=== PATIENT | male | born 1965 | race Caucasian/White ===

== ENCOUNTER 2018-08-08 20:45 | Inpatient (IN) ==
[2018-08-08] MEDS ORDERED: Mag Hydrox/Al Hydrox/Simeth 30 ML UDC PO PRN (22:01)
[2018-08-08] MEDS: *HR* OxyCODONE Immed Rel 5 MG TABLET PO PRN (22:30)
[2018-08-09] MEDS ORDERED: *HR* OxyCODONE Immed Rel 5 MG TABLET PO SCH
[2018-08-09] MEDS: *HR* OxyCODONE Immed Rel 5 MG TABLET PO PRN ×3 (02:38→11:07)
[2018-08-09 04:52] LABS: Basophils % 0.2 %; Eosinophils # 0.1 K/mcL (0.0-0.6); Eosinophils % 0.7 %; Hematocrit 36.5 % (37.5-50.1); Hemoglobin 12.2 g/dL (12.9-16.9); Immature Granulocytes % 1.4 % (0-4); Lymphocytes # 1.6 K/mcL (0.6-4.6); Lymphocytes % 8.9 %; Mean Corpuscular HGB Conc 33.4 g/dL (31.6-35.5); Mean Corpuscular Hemoglobin 29.3 pg (28.0-33.3); Mean Corpuscular Volume 87.5 fL (83.0-100.0); Mean Platelet Volume 9.2 fL (9.4-12.4); Monocytes # 2.1 K/mcL (0.0-1.3); Monocytes % 11.8 %; Neutrophils # 13.8 K/mcL (1.6-8.9); Platelet Count 423 K/mcL (140-400); Red Blood Count 4.17 M/mcL (4.19-5.50); Red Cell Distribution Width 14.2 % (11.5-14.5)
[2018-08-09 05:10] LABS: BUN/Creatinine Ratio 21 (6-26); Blood Urea Nitrogen 16 mg/dL (6-20); Calcium 9.4 mg/dL (8.6-10.3); Carbon Dioxide 29 mEq/L (23-29); Chloride 97 mEq/L (98-107); Glucose 139 mg/dL (70-105); Osmolality,Calculated 281 (280-300); Potassium 4.3 mEq/L (3.5-5.1); Sodium 134 mEq/L (136-145); eGFR For Non-African Americans > 60 (> 60)
[2018-08-09] MEDS: Acetaminophen 325 MG TABLET PO PRN ×2 (08:31→20:37)
[2018-08-09] MEDS: Aspirin Enteric Coated 81 MG Tablet PO SCH (08:32)
[2018-08-09] MEDS: predniSONE 10 MG TABLET PO SCH (08:33)
[2018-08-09] MEDS: *HR* Enoxaparin 40 MG/0.4 ML SYRINGE SQ SCH (08:34)
--- NOTE | 2018-08-09 10:12 | Internal Med History&Physical ---
Date of Encounter: 08/09/18 Time of Encounter: 10:08 Assessment and Plan (1) Status post total knee replacement, right Current visit: Yes Status: Acute Patient is a right total knee replacement who was admitted to this facility for rehabilitation due to deconditioning and pain management. Patient has a long history of rheumatoid arthritis and states that he has had moderate generalized joint pain since his admission to [facility]. Otherwise patient's surgical recovery from his right total knee replacement has been uneventful. Right knee appears with only slight swelling and midline incision appears healthy and intact. Patient states that his pain has been fairly well-controlled with current medications. Patient states that he is began physical therapy and is progressing well. (2) HTN (hypertension) Current visit: Yes Status: Chronic Vital signs of an stable. We will continue with current medications. Qualifiers: Hypertension type: unspecified Qualified Code(s): I10 - Essential (primary ) hypertension (3) Rheumatoid arthritis Current visit: Yes Status: Chronic Patient states that he has had an increase in generalized arthritic type pain to his joints. Patient states that since his admission to [facility] he has not taken his Leflunomide, which is a immunosuppressive rheumatoid home medication. Patient will be restarted on this medication, although patient has been noted to have a WBC count is greater than 17 presently. Patient's had a slow trending up of his WBC over the past several days. Yesterday's chest x-ray showed no acute process. Patient has been afebrile. Denies any dysuria or productive cough. We will obtain CBC over the next 3 days to monitor WBC count. Qualifiers: Rheumatoid arthritis location: unspecified site Rheumatoid factor presence : unspecified presence Qualified Code(s): M06.9 - Rheumatoid arthritis, unspecified Internal Medicine - H&P: HPI Chief complaint: right total knee replacement Admitted From: Hospital to Hospital Transfer Plans for Post Hospital Care: Home History of present illness: Mr. Barragan is a 52 year old male, who had a right total knee replacement at [facility]. Patient's initial recovery from surgery was uneventful per medical records from Hospital. Patient has a history of hypertension, gout, degenerative joint disease, CAD, and rheumatoid arthritis. Patient currently states that he continues to have moderate pain to his right knee, but that his pain is tolerable with current medications. He does have complaint of increasing moderate pain to various joints, which she describes as rheumatoid arthritis type pain. He states that since his admission at [facility] he has not had his Leflunomide, which is a immunosuppressive medication that he takes for his rheumatoid arthritis. Patient's WBC count was noted to be 17 this morning which has been a slow trending upward over the past several days. Patient had chest x-ray that was done yesterday which showed no acute process. Patient also complains of having no BM since surgery, although he has been passing gas. Patient denies any shortness of breath. States that physical therapy began and has been progressing well. Patient currently has continuous icing to his right knee. Past Med Surg Social Fam HX - Past Medical History Medical history: coronary artery disease, hypertension, RA, other Additional medical history: Gout, carpal tunnel, restless leg syndrome Psychiatric history: no psych history - Past Surgical History Surgical History: knee replacement Additional surgical history: right knee,heart cath-no stents. left knee meniscus transplant - Social History Smoking Status: Never smoker Smokeless Tobacco Status: Yes Alcohol use: none Drug use: none - Family History Mother Living Status: Hx Family Cardiac Disorders: Yes Internal Medicine - H&P: Meds Allopurinol [Zyloprim 300 MG] 450 mg PO DAILY 11/07/17 [History] Irbesartan [Avapro] 300 mg PO DAILY 11/07/17 [History] Potassium Chloride [K-Tab ER] 20 meq PO DAILY 11/07/17 [History] Metoprolol [Lopressor] 50 mg PO BID #60 tablet 11/08/17 [Rx] Triamterene/HCTZ 37.5/25mg [Dyazide] 1 each PO DAILY #30 tablet 11/08/17 [Rx] Acetaminophen [Tylenol] 650 mg PO Q4HR PRN 08/08/18 [History] Aspirin Enteric Coated [Aspirin EC] 81 mg PO DAILY 08/08/18 [History] Enoxaparin [Lovenox] 40 mg SQ DAILY 08/08/18 [History] OxyCODONE Immed Rel [Roxicodone 5 MG] 5 mg PO Q4HR PRN 08/08/18 [History] PredniSONE [Deltasone] 20 mg PO DAILY #12 tablet 08/08/18 [Rx] Docusate [Colace] 100 mg PO BID 08/09/18 [History] Leflunomide [Arava] 20 mg PO DAILY 08/09/18 [History] 3 Allergy/AdvReac Type Severity Reaction Status Date / Time No Known Allergies Allergy Verified 08/05/18 11:41 All Systems PM: A 10-system review of systems was performed and is negative for pertinent findings except as documented above in the HPI. - Constitutional Constitutional: as per HPI, no chills, no fever(s), no night sweats - EENT Eyes: no change in vision, no discharge, no pain, no photophobia Ears: no ear discharge, no ear pain, no tinnitus Nose, mouth and throat: no dysphagia, no nasal discharge, no neck pain, no sore throat - Cardiovascular Cardiovascular ROS IM: as per HPI, no chest pain, no diaphoresis, no dyspnea, no lightheadedness, no palpitations, no syncope - Respiratory Respiratory: as per HPI, no cough, no dyspnea, no wheezing, no excessive phlegm production - Gastrointestinal Gastrointestinal: no abdominal pain, no diarrhea, no hematemesis, no hematochezia, no melena, no nausea, no vomiting - Musculoskeletal Musculoskeletal ROS IM: as per HPI, no numbness, no tingling - Integumentary Integumentary IM: no rash, no unusual bruising - Neurological Neurological ROS: no confusion, no convulsions, no focal weakness, no numbness, no tingling, no tremor(s) - Hematologic/Lymphatic Hematologic/Lymphatic: no easy bruising - Constitutional Vitals: Temp Pulse Resp BP Pulse Ox 97.4 F L 76 18 136/77 96 08/09/18 07:10 08/09/18 07:10 08/09/18 07:10 08/09/18 07:10 08/09/18 07:10 General appearance: Present: A&O X 3, pleasant - Head Head exam: Present: atraumatic, normocephalic - Eye Eye exam: Present: PERRL, conjuntiva pink, sclera anicteric Pupils: Present: PERRL - Neck Neck exam general surgery: Present: supple, trachea midline. Absent: lymphadenopathy - Respiratory Respiratory exam: Present: CTAB. Absent: accessory muscle use, rales, rhonchi, wheezes - Cardiovascular Cardiovascular exam: Present: RRR, +S1, +S2. Absent: diastolic murmur, gallop, rubs, systolic murmur - GI/Abdominal GI/Abdominal exam: Present: normal bowel sounds, soft, no peritoneal signs. Absent: distended, tenderness - Extremities Exam Extremities exam: Present: warm, radial pulses palpable and symmetrical. Absent : calf tenderness, cyanotic, pedal edema Additional comments: Right knee appears slightly swollen with a midline surgical incision appears healthy and intact. No erythema or ecchymosis noted at site. Continuous icing and use - Neurological Exam Neurological exam: Present: CN II-XII intact, oriented X3, no focal deficits. Absent: pronater drift, facial droop, speech deficit - Skin Skin exam: Present: dry, intact Internal Med - H&P Results - Labs CBC & Chem 7: 08/09/18 04:15 08/09/18 04:15 Labs: Short CBC 08/09/18 Range/Units 04:15 WBC 17.9 H (4.3-11.1) K/mcL Hgb 12.2 L (12.9-16.9) g/dL Hct 36.5 L (37.5-50.1) % Plt Count 423 H (140-400) K/mcL Neutrophils # 13.8 H (1.6-8.9) K/mcL BMP 08/09/18 04:15 Sodium 134 L Potassium 4.3 Chloride 97 L Carbon Dioxide 29 BUN 16 Creatinine 0.75 Glucose 139 H Calcium 9.4
[2018-08-09] MEDS: LEFLUNOMIDE 20 MG PO SCH (10:17)
[2018-08-09] MEDS ORDERED: MOM Conc 10 ML UD.LIQ PO PRN (15:04)
[2018-08-09 17:35] LABS: Bilirubin,Urine Negative (Negative); Blood,Urine Negative (Negative); Clarity,Urine Clear (Clear); Color,Urine Yellow (Yellow); Glucose,Urine (UA) Normal (Normal); Ketones,Urine Negative (Negative); Leukocyte Esterase,Urine Negative (Negative); Nitrite,Urine Negative (Negative); Protein,Urine Negative (Neg-Trace); Specific Gravity,Urine 1.015 (1.010-1.025); Urobilinogen,Urine Normal (Normal)
[2018-08-09] MEDS: Sennosides 8.6 MG TABLET PO SCH (20:37)
[2018-08-09] MEDS: tiZANidine 4 MG TABLET PO PRN (20:38)
[2018-08-10 06:27] LABS: Basophils # 0.1 K/mcL (0.0-0.2); Basophils % 0.5 %; Eosinophils # 0.6 K/mcL (0.0-0.6); Eosinophils % 3.9 %; Hemoglobin 10.6 g/dL (12.9-16.9); Immature Granulocytes % 2.5 % (0-4); Lymphocytes # 2.5 K/mcL (0.6-4.6); Lymphocytes % 17.9 %; Mean Corpuscular HGB Conc 33.1 g/dL (31.6-35.5); Mean Corpuscular Hemoglobin 28.9 pg (28.0-33.3); Mean Corpuscular Volume 87.2 fL (83.0-100.0); Mean Platelet Volume 8.8 fL (9.4-12.4); Monocytes # 1.9 K/mcL (0.0-1.3); Monocytes % 13.3 %; Neutrophils # 8.8 K/mcL (1.6-8.9); Platelet Count 383 K/mcL (140-400); Red Blood Count 3.67 M/mcL (4.19-5.50); Red Cell Distribution Width 14.3 % (11.5-14.5); Segmented Neutrophils % 61.9 %
[2018-08-10 06:44] LABS: Alanine Aminotransferase 20 Units/L (7-52); Albumin 3.4 g/dL (3.5-5.7); Albumin/Globulin Ratio 1.4 (1.1-2.2); Alkaline Phosphatase 57 Units/L (34-104); Aspartate Amino Transferase 16 Units/L (13-39); BUN/Creatinine Ratio 27 (6-26); Bilirubin,Total 0.6 mg/dL (0.3-1.0); Blood Urea Nitrogen 21 mg/dL (6-20); Calcium 8.9 mg/dL (8.6-10.3); Carbon Dioxide 29 mEq/L (23-29); Chloride 100 mEq/L (98-107); Globulin 2.5 g/dL (2.4-3.5); Glucose 100 mg/dL (70-105); Magnesium 2.4 mg/dL (1.6-2.6); Osmolality,Calculated 283 (280-300); Potassium 3.3 mEq/L (3.5-5.1); Sodium 135 mEq/L (136-145); Total Protein 5.9 g/dL (6.4-8.9); eGFR For Non-African Americans > 60 (> 60)
[2018-08-10] MEDS: LEFLUNOMIDE 20 MG PO SCH (08:57)
[2018-08-10] MEDS: predniSONE 10 MG TABLET PO SCH (08:57)
[2018-08-10] MEDS: *HR* Enoxaparin 40 MG/0.4 ML SYRINGE SQ SCH (08:58)
[2018-08-10] MEDS: Aspirin Enteric Coated 81 MG Tablet PO SCH (08:58)
[2018-08-10] MEDS: Sennosides 8.6 MG TABLET PO SCH ×2 (08:58→21:50)
[2018-08-10] MEDS: tiZANidine 4 MG TABLET PO PRN ×3 (09:08→21:51)
[2018-08-10] MEDS: *HR* OxyCODONE Immed Rel 5 MG TABLET PO PRN ×3 (10:36→21:51)
[2018-08-10] MEDS: Acetaminophen 325 MG TABLET PO PRN (13:45)
--- NOTE | 2018-08-10 14:01 | Internal Med Progress Note ---
Date of Encounter: 08/10/18 Time of Encounter: 12:30 - Assessment and plan (1) Status post total knee replacement, right Current Visit: Yes Status: Acute Assessment and plan: This is stable and we will continue therapies as planned. Muscle relaxant seems to help his spasm at the quadriceps muscle. Constipation has improved and hopefully will be resolved. (2) HTN (hypertension) Current Visit: Yes Status: Chronic Assessment and plan: This is clinically controlled on his current regimen. Qualifiers: Hypertension type: unspecified Qualified Code(s): I10 - Essential (primary ) hypertension (3) DVT prophylaxis Current Visit: No Status: Acute Assessment and plan: We will continue enoxaparin until we know he is ambulating well enough to decrease his risk. (4) Gout Current Visit: No Status: Chronic Assessment and plan: No current symptoms or findings. Qualifiers: Gout site: unspecified site Gout etiology: unspecified cause Chronicity: unspecified Qualified Code(s): M10.9 - Gout, unspecified (5) Rheumatoid arthritis Current Visit: Yes Status: Chronic Assessment and plan: This seems to be stable on current regimen. Qualifiers: Rheumatoid arthritis location: unspecified site Rheumatoid factor presence : unspecified presence Qualified Code(s): M06.9 - Rheumatoid arthritis, unspecified (6) Postoperative urinary retention Current Visit: No Status: Chronic Assessment and plan: Currently asymptomatic. - Subjective Interval history: Patient finally moved his bowels and feels like he will have a bowel movement shortly. He has moderate pain which seems to be controlled, especially in the upper thigh and the muscle relaxant helped us. Patient has no complaint of chest discomfort, dyspnea, orthopnea, palpitations, nausea or vomiting, constipation or diarrhea, other changes in bowel habits, difficulty with urination, rash or itching, or other new complaints, except as mentioned above. Review of systems is otherwise negative. I discussed management of her care with nursing staff. - Constitutional Vitals: Temp Pulse Resp BP Pulse Ox 98.6 F 70 16 129/77 99 08/10/18 06:56 08/10/18 06:56 08/10/18 06:56 08/10/18 06:56 08/10/18 06:56 Exam: Examination: (Except as mentioned above): General: In no apparent distress. Alert and oriented 3. Nondiaphoretic. Head: Atraumatic and normocephalic. Respiratory: No use of accessory muscles. Lungs are clear throughout. Normal airflow. Cardiovascular: Regular rate and rhythm without murmur appreciated. Abdomen: Bowel sounds are normal. No hepatosplenomegaly mass or tenderness appreciated. Obese and therefore difficult to palpate deeply. Extremities: No cyanosis clubbing or edema. He actually has minimal edema at the right upper thigh and palpable spasm but this is better than yesterday. Skin: Warm and non-diaphoretic with no new lesions noted. Internal Medicine: Result - Labs CBC & Chem 7: 08/10/18 05:40 08/10/18 05:40 Labs: Short CBC 08/10/18 Range/Units 05:40 WBC 14.2 H (4.3-11.1) K/mcL Hgb 10.6 L D (12.9-16.9) g/dL Hct 32.0 L (37.5-50.1) % Plt Count 383 (140-400) K/mcL Neutrophils # 8.8 (1.6-8.9) K/mcL BMP 08/10/18 05:40 Sodium 135 L Potassium 3.3 L Chloride 100 Carbon Dioxide 29 BUN 21 H Creatinine 0.78 Glucose 100 Calcium 8.9 Liver Function 08/10/18 Range/Units 05:40 Total Bilirubin 0.6 (0.3-1.0) mg/dL AST 16 (13-39) Units/L ALT 20 (7-52) Units/L Alkaline Phosphatase 57 (34-104) Units/L Albumin 3.4 L (3.5-5.7) g/dL Urine 08/09/18 Range/Units 17:22 Urine Color Yellow (Yellow) Urine Clarity Clear (Clear) Urine pH 7.0 (5.0-8.0) pH Units Ur Specific West 1.015 (1.010-1.025) Urine Protein Negative (Neg-Trace) mg/dL Urine Glucose (UA) Normal (Normal) mg/dL Consult Discharge Plan - Plan Referrals: Celestine Martinez MD [Partnered Physician] - 09/04/18 4:45 pm Danika Guerrier PAC [Physician Business Analytics Manager] - 08/23/18 8:45 am ([facility] [place] f/u appt on 08/15/18 at 09:30am f/u appt on Sunday08/23/18 at 08:45am) Miguel Lira DO [Partnered Physician] - 10/15/18 4:00 pm Black Garrison DO [Primary Care Provider] - 11/25/18 11:00 am
[2018-08-11] MEDS: *HR* OxyCODONE Immed Rel 5 MG TABLET PO PRN ×2 (05:32→20:37)
[2018-08-11] MEDS: tiZANidine 4 MG TABLET PO PRN ×3 (05:36→17:29)
[2018-08-11 05:43] LABS: Basophils # 0.1 K/mcL (0.0-0.2); Basophils % 0.6 %; Eosinophils # 0.7 K/mcL (0.0-0.6); Eosinophils % 3.5 %; Hematocrit 32.4 % (37.5-50.1); Hemoglobin 10.8 g/dL (12.9-16.9); Immature Granulocytes % 3.1 % (0-4); Lymphocytes % 21.3 %; Mean Corpuscular HGB Conc 33.3 g/dL (31.6-35.5); Mean Corpuscular Hemoglobin 29.3 pg (28.0-33.3); Mean Platelet Volume 8.7 fL (9.4-12.4); Monocytes # 2.3 K/mcL (0.0-1.3); Monocytes % 12.2 %; Platelet Count 426 K/mcL (140-400); Red Blood Count 3.68 M/mcL (4.19-5.50); Red Cell Distribution Width 14.6 % (11.5-14.5); Segmented Neutrophils % 59.3 %
[2018-08-11] MEDS: Acetaminophen 325 MG TABLET PO PRN ×2 (09:50→17:28)
[2018-08-11] MEDS: predniSONE 10 MG TABLET PO SCH (09:50)
[2018-08-11] MEDS: Sennosides 8.6 MG TABLET PO SCH ×2 (09:51→20:36)
[2018-08-11] MEDS: *HR* Enoxaparin 40 MG/0.4 ML SYRINGE SQ SCH (09:51)
[2018-08-11] MEDS: Aspirin Enteric Coated 81 MG Tablet PO SCH (09:51)
[2018-08-11] MEDS: LEFLUNOMIDE 20 MG PO SCH (09:52)
--- NOTE | 2018-08-11 12:38 | Internal Med Progress Note ---
Date of Encounter: 08/11/18 Time of Encounter: 12:36 - Assessment and plan (1) Status post total knee replacement, right Current Visit: Yes Status: Acute Assessment and plan: Right knee with minimal edema noted and midline surgical incision appears dry and intact. No erythema noted, but slight ecchymosis noted to right lateral. We will continue with current CPM machine while in bed. Patient to continue with continuous icing. Patient states pain is tolerable with current pain medications. Patient does complain of slight decrease in sensation to his right lower leg since his surgery. On exam patient has very slight decreased sensation to sharp stimulus. Patient also noted to have a Bryant's cyst to the posterior knee which is tender on palpation. Patient also has a complaint of paresthesia started last evening to his right ankle area. He states that he does have a history of gout, so we will obtain a uric acid on his next blood draw. No other signs of infectious process noted. (2) HTN (hypertension) Current Visit: Yes Status: Chronic Assessment and plan: No acute issues. Patient is vital signs been stable. We will continue with current medications. Qualifiers: Hypertension type: unspecified Qualified Code(s): I10 - Essential (primary ) hypertension (3) Rheumatoid arthritis Current Visit: Yes Status: Chronic Assessment and plan: No acute issues. Patient had a complaint of generalized joint pain several days earlier, which has resolved after starting back on his home rheumatoid medications Qualifiers: Rheumatoid arthritis location: unspecified site Rheumatoid factor presence : unspecified presence Qualified Code(s): M06.9 - Rheumatoid arthritis, unspecified - Time Spent With Patient less than 15 minutes - Subjective Interval history: Patient complaints of a paresthesia-type effect to his right foot, stating that he has had decreased sensation from his knee down since surgery, but now has a tingling type sensation to his right ankle area. Patient also complains of pain to the back of his knee where he has a Bryant cyst which is tender on palpation. Cardiovascular checks of right distal legs were normal with capillary refill less than 3 seconds. Patient states that pain to his right knee has been tolerable with current pain medications. Patient currently has CPM continues with continuous ice machine. Patient denies any fever or chills. Denies any productive cough or dysuria. Today's WBC count was 18. Patient states a history of gout - Constitutional Vitals: Temp Pulse Resp BP Pulse Ox 98.4 F 73 16 146/80 97 08/11/18 07:40 08/11/18 07:40 08/11/18 07:40 08/11/18 07:40 08/11/18 07:40 General appearance: Present: A&O X 3, pleasant - Head Head exam: Present: atraumatic, normocephalic - Eye Eye exam: Present: PERRL, conjuntiva pink, sclera anicteric Pupils: Present: PERRL - Neck Neck exam general surgery: Present: supple, trachea midline. Absent: lymphadenopathy - Respiratory Respiratory exam: Present: CTAB. Absent: accessory muscle use, rales, rhonchi, wheezes - Cardiovascular Cardiovascular exam: Present: RRR, +S1, +S2. Absent: diastolic murmur, gallop, rubs, systolic murmur - GI/Abdominal GI/Abdominal exam: Present: normal bowel sounds, soft, no peritoneal signs. Absent: distended, tenderness - Extremities Exam Extremities exam: Present: warm, radial pulses palpable and symmetrical. Absent : calf tenderness, cyanotic, pedal edema Additional comments: Right knee midline surgical incision appears dry and intact with no erythema. Noted slight ecchymosis to the lateral side. Normal edema. CPM and continuous use at this time. Continuous icing and use - Neurological Exam Neurological exam: Present: CN II-XII intact, oriented X3. Absent: pronater drift, facial droop, speech deficit Additional comments: Patient complains of decreased sensation below his right knee surgical site distally. On exam patient noted to have slightly decreased sharp sensation bilaterally on right leg. Patient also complains of paresthesia to the right ankle. No other focal neurological deficits noted on exam. - Skin Skin exam: Present: dry, intact Internal Medicine: Result - Labs CBC & Chem 7: 08/11/18 05:35 08/10/18 05:40 Labs: Short CBC 08/11/18 Range/Units 05:35 WBC 18.6 H (4.3-11.1) K/mcL Hgb 10.8 L (12.9-16.9) g/dL Hct 32.4 L (37.5-50.1) % Plt Count 426 H (140-400) K/mcL Neutrophils # 11.0 H (1.6-8.9) K/mcL Consult Discharge Plan - Plan Referrals: Celestine Martinez MD [Partnered Physician] - 09/04/18 4:45 pm Danika Guerrier PAC [Physician Dye Maker] - 08/23/18 8:45 am ([facility] [place] f/u appt on 08/15/18 at 09:30am f/u appt on Sunday08/23/18 at 08:45am) Miguel Lira DO [Partnered Physician] - 10/15/18 4:00 pm Black Garrison DO [Primary Care Provider] - 11/25/18 11:00 am
[2018-08-12] MEDS: Acetaminophen 325 MG TABLET PO PRN ×2 (03:31→14:47)
[2018-08-12] MEDS: tiZANidine 4 MG TABLET PO PRN (03:32)
[2018-08-12 05:51] LABS: Basophils # 0.1 K/mcL (0.0-0.2); Basophils % 0.6 %; Eosinophils # 0.5 K/mcL (0.0-0.6); Eosinophils % 3.6 %; Hematocrit 30.6 % (37.5-50.1); Hemoglobin 9.9 g/dL (12.9-16.9); Immature Granulocytes % 3.3 % (0-4); Lymphocytes # 2.7 K/mcL (0.6-4.6); Lymphocytes % 19.7 %; Mean Corpuscular HGB Conc 32.4 g/dL (31.6-35.5); Mean Corpuscular Hemoglobin 29.2 pg (28.0-33.3); Mean Corpuscular Volume 90.3 fL (83.0-100.0); Mean Platelet Volume 8.8 fL (9.4-12.4); Monocytes # 1.7 K/mcL (0.0-1.3); Monocytes % 12.2 %; Neutrophils # 8.4 K/mcL (1.6-8.9); Platelet Count 327 K/mcL (140-400); Red Blood Count 3.39 M/mcL (4.19-5.50); Red Cell Distribution Width 14.6 % (11.5-14.5); Segmented Neutrophils % 60.6 %
[2018-08-12 06:09] LABS: BUN/Creatinine Ratio 20 (6-26); Blood Urea Nitrogen 14 mg/dL (6-20); Calcium 8.9 mg/dL (8.6-10.3); Carbon Dioxide 30 mEq/L (23-29); Chloride 104 mEq/L (98-107); Glucose 97 mg/dL (70-105); Magnesium 2.4 mg/dL (1.6-2.6); Osmolality,Calculated 290 (280-300); Potassium 4.3 mEq/L (3.5-5.1); Sodium 140 mEq/L (136-145); eGFR For Non-African Americans > 60 (> 60)
[2018-08-12] MEDS: *HR* OxyCODONE Immed Rel 5 MG TABLET PO PRN ×2 (07:41→11:58)
[2018-08-12] MEDS: predniSONE 10 MG TABLET PO SCH (07:42)
[2018-08-12] MEDS: Aspirin Enteric Coated 81 MG Tablet PO SCH (07:43)
[2018-08-12] MEDS: Sennosides 8.6 MG TABLET PO SCH ×2 (07:43→20:33)
[2018-08-12] MEDS: *HR* Enoxaparin 40 MG/0.4 ML SYRINGE SQ SCH (07:45)
[2018-08-12] MEDS: LEFLUNOMIDE 20 MG PO SCH (07:55)
--- NOTE | 2018-08-12 10:58 | Internal Med Progress Note ---
Date of Encounter: 08/12/18 Time of Encounter: 10:56 - Assessment and plan (1) Status post total knee replacement, right Current Visit: Yes Status: Acute Assessment and plan: Right knee with minimal edema noted and midline surgical incision appears dry and intact. No erythema noted, but slight ecchymosis noted to right lateral. We will continue with current CPM machine while in bed. Patient to continue with continuous icing. Patient states pain remains tolerable with current pain medications. Patient does continue to complain of slight decrease in sensation to his right lower leg since his surgery, but states that the decreased sensation and a paresthesia symptoms have subsided somewhat. Patient also noted to have a Bryant's cyst to the posterior knee which is tender on palpation. He states that he does have a history of gout, but uric acid this morning it was only 2.8. No other signs of infectious process noted. (2) HTN (hypertension) Current Visit: Yes Status: Chronic Assessment and plan: No acute issues. Patient is vital signs been stable. We will continue with current medications. Qualifiers: Hypertension type: unspecified Qualified Code(s): I10 - Essential (primary ) hypertension (3) Rheumatoid arthritis Current Visit: Yes Status: Chronic Assessment and plan: No acute issues. Patient had a complaint of generalized joint pain several days earlier, which has resolved after starting back on his home rheumatoid medications. Patient's most recent WBC count was 13 Qualifiers: Rheumatoid arthritis location: unspecified site Rheumatoid factor presence : unspecified presence Qualified Code(s): M06.9 - Rheumatoid arthritis, unspecified - Time Spent With Patient less than 15 minutes - Subjective Interval history: He states that the decreased sensation and paresthesia type symptoms he is having to his right lower leg and ankle have decreased today. Patient still complains of moderate pain to the back of his right knee due to the Bryant cyst that has been present. Patient states that his pain continues to be tolerable with current medications. Denies any other discomforts or shortness of breath. Denies any further constipation, stating that he is having greater BM's at this point. Patient has upcoming orthopedic appointment later this week and has been recommended to present his symptoms of decreased sensation and paresthesias to the orthopedic surgeon. Patient had stated that the symptoms and mainly postop. Right leg remains nonacute on exam with excellent CV checks. History of gout with this morning's uric acid at 2.8. - Constitutional Vitals: Temp Pulse Resp BP Pulse Ox 98.3 F 70 18 155/89 98 08/12/18 07:03 08/12/18 07:03 08/12/18 07:03 08/12/18 07:03 08/12/18 07:03 General appearance: Present: A&O X 3, pleasant - Head Head exam: Present: atraumatic, normocephalic - Eye Eye exam: Present: PERRL, conjuntiva pink, sclera anicteric Pupils: Present: PERRL - Neck Neck exam general surgery: Present: supple, trachea midline. Absent: lymphadenopathy - Respiratory Respiratory exam: Present: CTAB. Absent: accessory muscle use, rales, rhonchi, wheezes - Cardiovascular Cardiovascular exam: Present: RRR, +S1, +S2. Absent: diastolic murmur, gallop, rubs, systolic murmur - GI/Abdominal GI/Abdominal exam: Present: normal bowel sounds, soft, no peritoneal signs. Absent: distended, tenderness - Extremities Exam Extremities exam: Present: warm, radial pulses palpable and symmetrical. Absent : calf tenderness, cyanotic, pedal edema Additional comments: Right knee surgical incision remains dry and intact. No edema noted. No erythema. Minimal ecchymosis noted. - Neurological Exam Neurological exam: Present: CN II-XII intact, oriented X3, no focal deficits. Absent: pronater drift, facial droop, speech deficit - Skin Skin exam: Present: dry, intact Internal Medicine: Result - Labs CBC & Chem 7: 08/12/18 05:20 08/12/18 05:20 Labs: Short CBC 08/12/18 Range/Units 05:20 WBC 13.8 H (4.3-11.1) K/mcL Hgb 9.9 L (12.9-16.9) g/dL Hct 30.6 L (37.5-50.1) % Plt Count 327 (140-400) K/mcL Neutrophils # 8.4 (1.6-8.9) K/mcL BMP 08/12/18 05:20 Sodium 140 Potassium 4.3 Chloride 104 Carbon Dioxide 30 H BUN 14 Creatinine 0.69 L Glucose 97 Calcium 8.9 Consult Discharge Plan - Plan Referrals: Celestine Martinez MD [Partnered Physician] - 09/04/18 4:45 pm Danika Guerrier, RHONDA [Physician Print Developer] - 08/23/18 8:45 am ([facility] [place] f/u appt on 08/15/18 at 09:30am f/u appt on Sunday08/23/18 at 08:45am) Miguel Lira DO [Partnered Physician] - 10/15/18 4:00 pm Black Garrison DO [Primary Care Provider] - 11/25/18 11:00 am
[2018-08-13] MEDS: tiZANidine 4 MG TABLET PO PRN ×2 (00:12→08:50)
[2018-08-13] MEDS: *HR* OxyCODONE Immed Rel 5 MG TABLET PO PRN ×2 (00:14→05:40)
[2018-08-13 07:16] VITALS: BP 176/96
[2018-08-13] MEDS: *HR* Enoxaparin 40 MG/0.4 ML SYRINGE SQ SCH (08:47)
[2018-08-13] MEDS: Acetaminophen 325 MG TABLET PO PRN (08:49)
[2018-08-13] MEDS: predniSONE 10 MG TABLET PO SCH (08:49)
[2018-08-13] MEDS: Aspirin Enteric Coated 81 MG Tablet PO SCH (08:50)
[2018-08-13] MEDS: Sennosides 8.6 MG TABLET PO SCH (08:50)
[2018-08-13] MEDS: LEFLUNOMIDE 20 MG PO SCH (08:51)
--- NOTE | 2018-08-13 11:35 | Discharge Summary ---
Date of Encounter: 08/13/18 Time of Encounter: 11:33 - Discharge Diagnosis (1) Status post total knee replacement, right Priority: Primary Status: Acute Comments: Improving. Continue outpatient physical therapy. Follow up with ortho as scheduled. Has appointment with Dr. Martinez on August 15. (2) HTN (hypertension) Priority: Primary Status: Chronic Comments: Controlled with current medication. Monitor blood pressure. Qualifiers: Hypertension type: unspecified Qualified Code(s): I10 - Essential (primary ) hypertension (3) Rheumatoid arthritis Priority: Primary Status: Chronic Comments: Controlled with current medication. Qualifiers: Rheumatoid arthritis location: unspecified site Rheumatoid factor presence : unspecified presence Qualified Code(s): M06.9 - Rheumatoid arthritis, unspecified Hospital course: Mr. Barragan is a 52 year old male Discharge discussed with: patient, nurse, social work - Time Spent with Patient Total time spent providing and/or coordinating discharge services: Less than 30 minutes - Discharge Medications Home Medications: Allopurinol [Zyloprim 300 MG] 450 mg PO DAILY 11/07/17 [History] Irbesartan [Avapro] 300 mg PO DAILY 11/07/17 [History] Metoprolol [Lopressor] 50 mg PO BID #60 tablet 11/08/17 [Rx] Triamterene/HCTZ 37.5/25mg [Dyazide] 1 each PO DAILY #30 tablet 11/08/17 [Rx] Acetaminophen [Tylenol] 650 mg PO Q4HR PRN 08/08/18 [History] Aspirin Enteric Coated [Aspirin EC] 81 mg PO DAILY 08/08/18 [History] OxyCODONE Immed Rel [Roxicodone 5 MG] 5 mg PO Q4HR PRN 08/08/18 [History] Docusate [Colace] 100 mg PO BID 08/09/18 [History] Leflunomide [Arava] 20 mg PO DAILY 08/09/18 [History] Docusate [Colace] 100 mg PO BID capsule 08/13/18 [Rx] MOM Conc [MILK OF MAGNESIA conc] 10 ml PO DAILY PRN ud.liq 08/13/18 [Rx] Mag Hydrox/Al Hydrox/Simeth [Maalox] 30 ml PO Q4H PRN udc 08/13/18 [Rx] Patient Taking Own Medication 0 each PO DAILY each 08/13/18 [Rx] Polyethylene Glycol 3350 [MiraLAX] 17 gm PO DAILY PRN powd.pack 08/13/18 [Rx] Potassium Chloride 20 meq PO TID tab.er.prt 08/13/18 [Rx] predniSONE [PredniSONE] 15 mg PO DAILY tablet 08/13/18 [Rx] Allergies/Adverse Reactions: 3 Allergy/AdvReac Type Severity Reaction Status Date / Time No Known Allergies Allergy Verified 08/05/18 11:41 Date of admission: 08/08/18 20:45 Primary care physician: Black Garrison DO Consults: 08/08/18 22:22 Consult to Occupational Therapy [CONS] Routine Comment: Evaluate, develop and implement POC Reason for Consult: eval / tx Does patient have active BEDREST order?: No Is patient medically & hemodynamically stable?: Yes Patient assessed for mobility or mobilized this visit?: No Consult to Physical Therapy [CONS] Routine Comment: Evaluate, develop and implement POC Reason for Consult: eval / tx Does patient have active BEDREST order?: No Is patient medically & hemodynamically stable?: Yes Patient assessed for mobility or mobilized this visit?: No Consult to Recreational Therapy [CONS] Routine Comment: Evaluate, develop and implement POC Consult to Aoc Director Intelligence Officer [CONS] Routine Reason for SW Consult: d/c planning 08/09/18 15:00 Consult to Physical Medicine/Rehab [CONS] Routine Reason for Consult: TKR Time Notified: 15:00 Call Completed: No Discharging clinician: Juan Escobar Anticipated date of discharge: 08/13/18 - Constitutional Vitals: Temp Pulse Resp BP Pulse Ox 98.2 F 71 18 176/96 98 08/13/18 07:16 08/13/18 07:16 08/13/18 07:16 08/13/18 07:16 08/13/18 07:16 General appearance: Present: cooperative, A&O X 3, pleasant, no acute distress, answers questions appropriately - Head Head exam: Present: atraumatic, normocephalic - Eye Eye exam: Present: PERRL, conjuntiva pink, sclera anicteric Pupils: Present: PERRL - Neck Neck exam general surgery: Present: supple, trachea midline. Absent: lymphadenopathy - Respiratory Respiratory exam: Present: CTAB. Absent: accessory muscle use, rales, rhonchi, wheezes - Cardiovascular Cardiovascular exam: Present: RRR, +S1, +S2. Absent: diastolic murmur, gallop, rubs, systolic murmur - GI/Abdominal GI/Abdominal exam: Present: normal bowel sounds, soft, no peritoneal signs. Absent: distended, tenderness - Extremities Exam Extremities exam: Present: warm, radial pulses palpable and symmetrical. Absent : calf tenderness, cyanotic, pedal edema - Incison Comments: right knee incision drsg dry and intact. - Neurological Exam Neurological exam: Present: CN II-XII intact, oriented X3, no focal deficits. Absent: pronater drift, facial droop, speech deficit - Skin Skin exam: Present: dry, intact - Patient Status Disposition: Home, Self-Care Condition: Good Functional capacity at discharge: uses cane/walker Overall status at discharge: patient is progressing back to baseline - Discharge Instructions Follow Up With: Celestine Martinez MD [Partnered Physician] - 09/04/18 4:45 pm Danika Guerrier PAC [Physician Feather Stitcher] - 08/23/18 8:45 am ([facility] f/u appt on 08/15/18 at 09:30am f/u appt on Sunday08/23/18 at 08:45am) Miguel Lira DO [Partnered Physician] - 10/15/18 4:00 pm Black Garrison DO [Primary Care Provider] - 08/22/18 12:00 pm
--- NOTE | 2018-08-13 15:47 | Physician Discharge Referral ---
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 For more information, call the [place] Tobacco Quit Line at 9-663-MLOQ-NOW. - Diet/Nutrition Diet/Nutrition Orders: Regular - Activity Activity Orders: Walker - Services Needed Following services are medically necessary services: Nursing, Physical Therapy, Occupational Therapy - Transfer Medications Home Medications: Allopurinol [Zyloprim 300 MG] 450 mg PO DAILY 11/07/17 [History] Irbesartan [Avapro] 300 mg PO DAILY 11/07/17 [History] Metoprolol [Lopressor] 50 mg PO BID #60 tablet 11/08/17 [Rx] Triamterene/HCTZ 37.5/25mg [Dyazide] 1 each PO DAILY #30 tablet 11/08/17 [Rx] Acetaminophen [Tylenol] 650 mg PO Q4HR PRN 08/08/18 [History] Aspirin Enteric Coated [Aspirin EC] 81 mg PO DAILY 08/08/18 [History] OxyCODONE Immed Rel [Roxicodone 5 MG] 5 mg PO Q4HR PRN 08/08/18 [History] Docusate [Colace] 100 mg PO BID 08/09/18 [History] Leflunomide [Arava] 20 mg PO DAILY 08/09/18 [History] Docusate [Colace] 100 mg PO BID capsule 08/13/18 [Rx] MOM Conc [MILK OF MAGNESIA conc] 10 ml PO DAILY PRN ud.liq 08/13/18 [Rx] Mag Hydrox/Al Hydrox/Simeth [Maalox] 30 ml PO Q4H PRN udc 08/13/18 [Rx] Patient Taking Own Medication 0 each PO DAILY each 08/13/18 [Rx] Polyethylene Glycol 3350 [MiraLAX] 17 gm PO DAILY PRN powd.pack 08/13/18 [Rx] Potassium Chloride 20 meq PO TID tab.er.prt 08/13/18 [Rx] predniSONE [PredniSONE] 15 mg PO DAILY tablet 08/13/18 [Rx] Allergies/Adverse Reactions: 3 Allergy/AdvReac Type Severity Reaction Status Date / Time No Known Allergies Allergy Verified 08/05/18 11:41 Certification: Further, I certify that my clinical findings support that this patient is homebound (i.e. absences from home require considerable and taxing effort and are for medical reasons or [facility] or infrequently or short duration when for other reasons) because: Homebound Reason: Patient requires assistance of a person or device to safely leave home, Post-surgery restriction and or conditions limit ability to leave home Attestation: My signature below is to certify that this patient is under my care and that I, or nurse practitioner, or a physician's insurance claims assistant working with me, has a face-to -face encounter with this patient.
--- NOTE | 2018-08-13 15:53 | Internal Med History&Physical ---
Date of Encounter: 08/13/18 Time of Encounter: 15:52 Assessment and Plan (1) Status post total knee replacement, right Status: Acute (2) HTN (hypertension) Status: Chronic Qualifiers: Hypertension type: unspecified Qualified Code(s): I10 - Essential (primary ) hypertension (3) DVT prophylaxis Status: Acute (4) Gout Status: Chronic Qualifiers: Gout site: unspecified site Gout etiology: unspecified cause Chronicity: unspecified Qualified Code(s): M10.9 - Gout, unspecified (5) Rheumatoid arthritis Status: Chronic Qualifiers: Rheumatoid arthritis location: unspecified site Rheumatoid factor presence : unspecified presence Qualified Code(s): M06.9 - Rheumatoid arthritis, unspecified (6) Postoperative urinary retention Status: Chronic (7) Acute blood loss anemia Status: Acute Internal Medicine - H&P: HPI Chief complaint: Shortness of breath Admitted From: Hospital to Hospital Transfer Plans for Post Hospital Care: Home History of present illness: Mr. Barragan is a 52 year old male Past Med Surg Social Fam HX - Past Medical History Medical history: coronary artery disease, hypertension, RA, other Additional medical history: Gout, carpal tunnel, restless leg syndrome Psychiatric history: no psych history - Past Surgical History Surgical History: knee replacement Additional surgical history: right knee,heart cath-no stents. left knee meniscus transplant - Social History Smoking Status: Never smoker Smokeless Tobacco Status: Yes Alcohol use: none Drug use: none - Family History Mother Living Status: Hx Family Cardiac Disorders: Yes Internal Medicine - H&P: Meds Allopurinol [Zyloprim 300 MG] 450 mg PO DAILY 11/07/17 [History] Irbesartan [Avapro] 300 mg PO DAILY 11/07/17 [History] Metoprolol [Lopressor] 50 mg PO BID #60 tablet 11/08/17 [Rx] Triamterene/HCTZ 37.5/25mg [Dyazide] 1 each PO DAILY #30 tablet 11/08/17 [Rx] Acetaminophen [Tylenol] 650 mg PO Q4HR PRN 08/08/18 [History] Aspirin Enteric Coated [Aspirin EC] 81 mg PO DAILY 08/08/18 [History] OxyCODONE Immed Rel [Roxicodone 5 MG] 5 mg PO Q4HR PRN 08/08/18 [History] Docusate [Colace] 100 mg PO BID 08/09/18 [History] Leflunomide [Arava] 20 mg PO DAILY 08/09/18 [History] Docusate [Colace] 100 mg PO BID capsule 08/13/18 [Rx] MOM Conc [MILK OF MAGNESIA conc] 10 ml PO DAILY PRN ud.liq 08/13/18 [Rx] Mag Hydrox/Al Hydrox/Simeth [Maalox] 30 ml PO Q4H PRN udc 08/13/18 [Rx] Patient Taking Own Medication 0 each PO DAILY each 08/13/18 [Rx] Polyethylene Glycol 3350 [MiraLAX] 17 gm PO DAILY PRN powd.pack 08/13/18 [Rx] Potassium Chloride 20 meq PO TID tab.er.prt 08/13/18 [Rx] predniSONE [PredniSONE] 15 mg PO DAILY tablet 08/13/18 [Rx] 3 Allergy/AdvReac Type Severity Reaction Status Date / Time No Known Allergies Allergy Verified 08/05/18 11:41 All Systems PM: A 10-system review of systems was performed and is negative for pertinent findings except as documented above in the HPI. - Constitutional Vitals: Temp Pulse Resp BP Pulse Ox 98.2 F 71 18 176/96 98 08/13/18 07:16 08/13/18 07:16 08/13/18 07:16 08/13/18 07:16 08/13/18 07:16 General appearance: Present: cooperative, A&O X 3, pleasant, no acute distress, answers questions appropriately Internal Med - H&P Results - Labs CBC & Chem 7: 08/12/18 05:20 08/12/18 05:20
== END 2018-08-13 15:15 | disposition home or self-care (01) | DRG 561 ==
LOC: INPGRE 20:45